=== PATIENT | male | born 1945 | race Caucasian/White ===

== ENCOUNTER 2019-05-27 22:34 | Emergency (ER) | payer OTHER, MEDICARE ==
[~2019-05-27] VITALS: Ht 180.3 cm; Wt 64.9 kg
[~2019-05-27 22:34] MED LIST: ARTTEAOPSO BOTHEYES; BACPOLTO30 TOP; CEPH500; CHOL10002 PO; CLIN300 PO; CLOBET30L TOP; CYAN1000; CYCL10 PO; DIGO.125; DOCU100 PO; FISH1000 PO; GABA300 PO; HCTZ/TRIAMTERENE PO; Hair, Skin & N1 EACH PO; MAGOXI400 PO; METO25 PO; PERIDEX15 ML MM; PRAV20 PO; PYRI100 PO; TIOT18 INH; TRIF2 PO; TRIF5 PO; Triamcinolone A15 G4 TP; Ventolin Soln3 ML INH; WARF2.5; WARF5 PO; XARELTO20 MG PO
[2019-05-27] MEDS ORDERED: Benztropine Mesy1 MG PO ×3 (23:04)
[2019-05-27] MEDS ORDERED: LANOXIN125 MCG PO (23:05)
[2019-05-27] MEDS ORDERED: TIOT18 INH (23:05)
[2019-05-27] MEDS ORDERED: MELA3 PO (23:05)
[2019-05-27] MEDS ORDERED: THERA-D2000 UNIT PO (23:06)
[2019-05-27] MEDS ORDERED: ZIPR20 PO (23:06)
[2019-05-27] MEDS ORDERED: ASCO500 PO (23:06)
[2019-05-27] MEDS ORDERED: METO25 (23:07)
[2019-05-27] MEDS ORDERED: ELIQUIS5 MG PO (23:07)
[2019-05-27] MEDS ORDERED: GABA300 PO (23:08)
[2019-05-27] MEDS ORDERED: Tylenol325 MG PO (23:09)
[2019-05-27] MEDS ORDERED: ONDA4 PO (23:10)
== END 2019-05-28 01:43 | disposition home or self-care (01) ==
LOC: ER 22:34
DX: S01.81XA Laceration without foreign body of other part of head, initial encounter (principal); I10 Essential (primary) hypertension; Z23 Encounter for immunization; Z79.899 Other long term (current) drug therapy; Z79.01 Long term (current) use of anticoagulants; W19.XXXA Unspecified fall, initial encounter
CPT/HCPCS: 12011; 90471; 90714; 96372; 99283-25; J1885